=== PATIENT | female | born 1990 | race Caucasian/White ===

== ENCOUNTER 2018-06-26 12:53 | Emergency (ER) | payer OTHER ==
[2018-06-26] MEDS ORDERED: ONDANSETRON ODT 4 MG TAB PO STA (14:44)
[2018-06-26] MEDS ORDERED: KETOROLAC 30 MG/ML 1 ML VIAL IVP STA (14:44)
[2018-06-26] MEDS ORDERED: SODIUM CHLORIDE 0.9% 1,000 ML IV STA ×2 (14:44)
[2018-06-26] MEDS ORDERED: diphenhydrAMINE 50 MG/ML 1 ML VIAL IVP STA (14:44)
[2018-06-26] MEDS ORDERED: ACETAMINOPHEN TAB 500 MG TAB PO STA (15:03)
[2018-06-26] MEDS ORDERED: CYCLOBENZAPRINE 10MG STARTER 3 TAB BTL PO STA (15:03)
--- NOTE | 2018-06-26 15:04 | ED ---
General Adult HPI - General Chief complaint: Recheck/Abnormal Lab/Rx Stated complaint: vandana, sent by [facility] Time Seen by Provider: 06/26/18 14:20 Source: patient, RN notes reviewed, old records reviewed Mode of arrival: ambulatory Limitations: no limitations - History of Present Illness Initial comments: 28-year-old female with sick contacts with flu presents emergency department today with 3 periods a migraine headache nausea vomiting and fever. Patient reports a sore throat and dry cough. Patient was sent by [employer] for fluids. She has a history of sick contacts withthe flu. SHe has used imitrex and fiorecet for her migrine. - Related Data Home Medications Medication Instructions Recorded Confirmed Acetaminophen Tab [Tylenol Tab] 500 mg PO Q6H PRN 06/26/18 06/26/18 Djjbxhrhhi-GPJ-Qzxkwcl-Codeine 1 cap PO Q8H PRN 06/26/18 06/26/18 [Fiorinal w/Cod 61-503-20-30MG] Imitrex (Unknown Dose) 1 tab PO DAILY PRN 06/26/18 Previous Rx's Medication Instructions Recorded Ondansetron Odt [Zofran Odt] 4 mg PO Q8HR PRN #15 tab 06/26/18 Oseltamivir [Tamiflu] 75 mg PO Q12HR #10 cap 06/26/18 Allergies Allergy/AdvReac Type Severity Reaction Status Date / Time No Known Allergies Allergy Verified 06/26/18 14:08 Review of Systems ROS Statement: Those systems with pertinent positive or pertinent negative responses have been documented in the HPI. ROS Other: All systems not noted in ROS Statement are negative. Past Medical History Past Medical History: Asthma Additional Past Medical History / Comment(s): Activity induced asthma. History of Any Multi-Drug Resistant Organisms: None Reported Past Surgical History: No Surgical Hx Reported Additional Past Anesthesia/Blood Transfusion Reaction / Comment(s): Has never had anesthesia, no family hx of anesthesia problems. Past Psychological History: Anxiety Smoking Status: Never smoker Past Alcohol Use History: None Reported Past Drug Use History: None Reported - Past Family History Mother Family Medical History: No Reported History General Exam - General Exam Comments Initial Comments: This is a 28 year old female, no distress. Limitations: no limitations General appearance: alert Head exam: Present: atraumatic, normocephalic, normal inspection Eye exam: Present: normal appearance, PERRL, EOMI. Absent: scleral icterus, conjunctival injection, periorbital swelling ENT exam: Present: normal exam, mucous membranes moist Neck exam: Present: normal inspection. Absent: tenderness, meningismus, lymphadenopathy Respiratory exam: Present: normal lung sounds bilaterally. Absent: respiratory distress, wheezes, rales, rhonchi, stridor Cardiovascular Exam: Present: regular rate, normal rhythm, normal heart sounds. Absent: systolic murmur, diastolic murmur, rubs, gallop, clicks Extremities exam: Present: normal inspection, full ROM, normal capillary refill. Absent: tenderness, pedal edema, joint swelling, calf tenderness Back exam: Present: normal inspection Neurological exam: Present: alert, oriented X3, CN II-XII intact Psychiatric exam: Present: normal affect, normal mood Skin exam: Present: warm, dry, intact, normal color. Absent: rash Course Vital Signs 06/26/18 06/26/18 06/26/18 13:26 14:39 16:50 Temperature 98.3 F 101.5 F H 99.3 F Pulse Rate 101 H 87 Respiratory 20 16 Rate Blood Pressure 111/79 105/69 O2 Sat by Pulse 99 95 Oximetry Medical Decision Making - Medical Decision Making 28 year old female with migraine headache, fever and URI symptoms. She has had vomting. She was given IV fluids labs obtained. Labs are unremarkble. Patient is postive for influenza. Patient given migraine cocktail with relief. Discussed DC with nausea medication and tamilfu. Return parameters discussed. - Lab Data Result diagrams: 06/26/18 15:17 06/26/18 15:17 Lab Results 06/26/18 06/26/18 06/26/18 Range/Units 15:17 15:17 15:17 WBC 6.0 (3.8-10.6) k/uL RBC 4.77 (3.80-5.40) m/uL Hgb 13.9 (11.4-16.0) gm/dL Hct 42.1 (34.0-46.0) % MCV 88.3 (80.0-100.0) fL MCH 29.2 (25.0-35.0) pg MCHC 33.1 (31.0-37.0) g/dL RDW 12.7 (11.5-15.5) % Plt Count 168 (150-450) k/uL Neutrophils % 76 % Lymphocytes % 14 % Monocytes % 7 % Eosinophils % 2 % Basophils % 0 % Neutrophils # 4.6 (1.3-7.7) k/uL Lymphocytes # 0.8 L (1.0-4.8) k/uL Monocytes # 0.4 (0-1.0) k/uL Eosinophils # 0.1 (0-0.7) k/uL Basophils # 0.0 (0-0.2) k/uL Sodium 137 (137-145) mmol/L Potassium 3.8 (3.5-5.1) mmol/L Chloride 104 (98-107) mmol/L Carbon Dioxide 22 (22-30) mmol/L Anion Gap 11 mmol/L BUN 11 (7-17) mg/dL Creatinine 0.88 (0.52-1.04) mg/dL Est GFR (CKD-EPI)AfAm >90 (>60 ml/min/1.73 sqM) Est GFR (CKD-EPI)NonAf 90 (>60 ml/min/1.73 sqM) Glucose 79 (74-99) mg/dL Calcium 8.8 (8.4-10.2) mg/dL Urine Color Urine Appearance (Clear) Urine pH (5.0-8.0) Ur Specific [place] (1.001-1.035) Urine Protein (Negative) Urine Glucose (UA) (Negative) Urine Ketones (Negative) Urine Blood (Negative) Urine Nitrite (Negative) Urine Bilirubin (Negative) Urine Urobilinogen (<2.0) mg/dL Ur Leukocyte Esterase (Negative) Urine RBC (0-5) /hpf Urine WBC (0-5) /hpf Ur Squamous Epith Cells (0-4) /hpf Urine Bacteria (None) /hpf Urine Mucus (None) /hpf Urine HCG, Qual (Not Detectd) Influenza Type A RNA Detected H (Not Detectd) Influenza Type B (PCR) Not Detected (Not Detectd) 06/26/18 06/26/18 Range/Units 15:56 15:56 WBC (3.8-10.6) k/uL RBC (3.80-5.40) m/uL Hgb (11.4-16.0) gm/dL Hct (34.0-46.0) % MCV (80.0-100.0) fL MCH (25.0-35.0) pg MCHC (31.0-37.0) g/dL RDW (11.5-15.5) % Plt Count (150-450) k/uL Neutrophils % % Lymphocytes % % Monocytes % % Eosinophils % % Basophils % % Neutrophils # (1.3-7.7) k/uL Lymphocytes # (1.0-4.8) k/uL Monocytes # (0-1.0) k/uL Eosinophils # (0-0.7) k/uL Basophils # (0-0.2) k/uL Sodium (137-145) mmol/L Potassium (3.5-5.1) mmol/L Chloride (98-107) mmol/L Carbon Dioxide (22-30) mmol/L Anion Gap mmol/L BUN (7-17) mg/dL Creatinine (0.52-1.04) mg/dL Est GFR (CKD-EPI)AfAm (>60 ml/min/1.73 sqM) Est GFR (CKD-EPI)NonAf (>60 ml/min/1.73 sqM) Glucose (74-99) mg/dL Calcium (8.4-10.2) mg/dL Urine Color Yellow Urine Appearance Cloudy H (Clear) Urine pH 5.5 (5.0-8.0) Ur Specific [place] 1.028 (1.001-1.035) Urine Protein 1+ H (Negative) Urine Glucose (UA) Negative (Negative) Urine Ketones 2+ H (Negative) Urine Blood Moderate H (Negative) Urine Nitrite Negative (Negative) Urine Bilirubin Negative (Negative) Urine Urobilinogen <2.0 (<2.0) mg/dL Ur Leukocyte Esterase Small H (Negative) Urine RBC 9 H (0-5) /hpf Urine WBC 3 (0-5) /hpf Ur Squamous Epith Cells 22 H (0-4) /hpf Urine Bacteria Rare H (None) /hpf Urine Mucus Moderate H (None) /hpf Urine HCG, Qual Not Detected (Not Detectd) Influenza Type A RNA (Not Detectd) Influenza Type B (PCR) (Not Detectd) Disposition Clinical Impression: Influenza A, Migraine Disposition: HOME SELF-CARE Condition: Good Instructions (If sedation given, give patient instructions): Migraine Headache (ED), Influenza (ED) Additional Instructions: Follow-up with primary care physician. Patient should return to ED if any alarming signs or symptoms occur. Prescriptions: Oseltamivir [Tamiflu] 75 mg PO Q12HR #10 cap Ondansetron Odt [Zofran Odt] 4 mg PO Q8HR PRN #15 tab PRN Reason: Nausea Is patient prescribed a controlled substance at d/c from ED?: No Referrals: Tor Morfin DO [Primary Care Provider] - 1-2 days Time of Disposition: 16:17
[2018-06-26 15:29] LABS: Basophils % (A) 0 %; Eosinophils # (A) 0.1 k/uL (0-0.7); Eosinophils % (A) 2 %; HCT 42.1 % (34.0-46.0); HGB 13.9 gm/dL (11.4-16.0); Lymphocytes # (A) 0.8 k/uL (1.0-4.8); Lymphocytes % (A) 14 %; MCH 29.2 pg (25.0-35.0); MCHC 33.1 g/dL (31.0-37.0); MCV 88.3 fL (80.0-100.0); Mean Platelet Volume 7.9; Monocytes # (A) 0.4 k/uL (0-1.0); Monocytes % (A) 7 %; Neutrophils # (A) 4.6 k/uL (1.3-7.7); Neutrophils % (A) 76 %; Platelet Count 168 k/uL (150-450); RBC 4.77 m/uL (3.80-5.40); RDW 12.7 % (11.5-15.5)
[2018-06-26 15:36] LABS: Anion Gap 11 mmol/L; Blood Urea Nitrogen 11 mg/dL (7-17); Calcium 8.8 mg/dL (8.4-10.2); Carbon Dioxide 22 mmol/L (22-30); Chloride 104 mmol/L (98-107); Glucose 79 mg/dL (74-99); Potassium 3.8 mmol/L (3.5-5.1); Sodium 137 mmol/L (137-145)
[2018-06-26] MEDS ORDERED: MORPHINE SULFATE 2 MG/ML SYRINGE IVP ONE (16:16)
[2018-06-26 16:18] LABS: Appearance,Urine Cloudy (Clear); Bacteria,Urine Rare /hpf; Bilirubin,Urine Negative (Negative); Blood,Urine Moderate (Negative); Color,Urine Yellow; Glucose,Urine (UA) Negative (Negative); Ketones,Urine 2+ (Negative); Leukocyte Esterase,Urine Small (Negative); Mucus,Urine Moderate /hpf; Nitrite,Urine Negative (Negative); PH, Urine 5.5 (5.0-8.0); Protein,Urine 1+ (Negative); RBC,Urine 9 /hpf (0-5); Specific Gravity,Urine 1.028 (1.001-1.035); Squamous Epithelial Cell,Urine 22 /hpf (0-4); Urobilinogen,Urine <2.0 mg/dL (<2.0); WBC,Urine 3 /hpf (0-5)
[2018-06-26 17:15] VITALS: BP 105/69; PULSE 87; RESP 16; TEMP 99.3
== END 2018-06-26 16:50 | disposition home or self-care (01) ==
LOC: EC 12:53
DX: J10.1 Influenza due to other identified influenza virus with other respiratory manifestations (principal); G43.909 Migraine, unspecified, not intractable, without status migrainosus
CPT/HCPCS: 36415; 80048; 85025; 81001; 81025; 87502; 99285; 96374; 96375 ×2; 96361 ×2; J1200; J1885; J2270

== ENCOUNTER → 2020-04-30 | Outpatient (CLI) | payer OTHER ==
--- NOTE | 2020-04-30 11:52 | XR ---
EXAMINATION TYPE: XR cervical spine 3 views, XR thoracic spine 3 views DATE OF EXAM: 04/30/2020 Comparison: None Clinical History: 30-year-old female posterior neck pain Findings: Cervical spine: A 1 cm faint density projecting at the subcutaneous adipose of the lower neck on the lateral view. No predental space widening or prevertebral soft tissue swelling. Alignment is maintained. Disc intersp aces also preserved. Normal odontoid view. Thoracic spine: 12 rib-bearing thoracic vertebral bodies. All pedicles are visualized. Slightly accentuated lower tho racic kyphosis. There may be very mild early degenerative disc disease with slight disc space narrowi ng mid to lower thoracic spine. Alignment is maintained. Impression: 1. Cervical spine: No prevertebral soft tissue swelling or malalignment. Faint 1 cm density projectin g in the subcutaneous adipose layer of the lower neck on the lateral view. This may represent externa l artifact. Correlate with physical exam findings for any palpable abnormality, in which case, target ed ultrasound can be performed. 2. Thoracic spine: Slightly accentuated lower thoracic kyphosis. Suspect mild early degenerative disc disease mid and lower thoracic spine. No vertebral compression collapse or malalignment.
== END | disposition home or self-care (01) ==
LOC: RADXRMAIN 10:58
PROVIDERS: ATTEND Family Medicine
DX: E65 Localized adiposity (principal); M40.294 Other kyphosis, thoracic region
CPT/HCPCS: 72040; 72070

== ENCOUNTER → 2020-10-03 | Outpatient (CLI) | payer OTHER ==
--- NOTE | 2020-10-04 06:46 | US ---
EXAMINATION TYPE: Transabdominal DATE OF EXAM: 10/03/2020 4:28 PM COMPARISON: NONE CLINICAL HISTORY: Z36 Confirm dates, O34.31. EXAM PERFORMED: Transvaginal (TV) and Transabdominal (TA) EXAM MEASUREMENTS: GESTATIONAL AGE / DATING Physician Established: Not yet established Dates by LMP: (8 weeks/5 days) EDC: 05-10-21 Dates by First Scan: No previous this is first scan Dates by Current Scan for: (6 weeks/5 days) EDC: 05-24-21 MATERNAL ANATOMY Uterus: 9.4 x 4.8 x 6.2cm Right Ovary: 5.9 x 3.3 x 2.6cm 2 cysts measuring 1.) 2.9 x 2.9 x 2.4cm and 2.) 2.8 x 2.8 x 2.3cm Left Ovary: 2.4 x 1.7 x 1.8cm Post CDS / Adnexa: wnl Presence of free fluid: no Small subchorionic bleed measures 0.4 x 0.5 x 0.4cm GESTATION / SURVEY CRL: 0.8 (6 weeks/5 days) Yolk Sac (normal less than 6mm): 0.2cm Heart Rate: 125 bpm Rhythm: Normal IUP: Viable IUP Age Appropriate Anatomy Cord Insertion: Too early to visualize Limbs: Too early to visualize Calvarium: Too early to visualize Date of LMP: 08-03-20 Beta HcG (if available): Not available at this time Single live intrauterine gestation is confirmed as Gestational sac, yolk sac, and pole are pres ent. No free fluid in pelvic cul-de-sac. Both ovaries are seen. Right ovary has 2 adjacent thin-walled cysts approaching 3.0 cm in size. One c ould reflect a corpus luteal cyst. Towards the end of the study tiny 4 x 5 x 4 mm fluid collection inferior to gestational sac is felt t o reflect implantation bleed. IMPRESSION: Confirmation of single live intrauterine gestation, mean crown-rump length 0.8 cm corresp onding to 6 week 5 day old fetus.
== END | disposition home or self-care (01) ==
LOC: RADUSWWP 15:41
PROVIDERS: ATTEND Obstetrics & Gynecology
DX: Z36.89 Encounter for other specified antenatal screening (principal); Z3A.01 Less than 8 weeks gestation of pregnancy
CPT/HCPCS: 76801; 76817

== ENCOUNTER 2020-10-13 13:43 | Emergency (ER) | payer OTHER ==
[2020-10-13 14:11] VITALS: RESP 18; TEMP 97.9
[2020-10-13] MEDS ORDERED: SODIUM CHLORIDE 0.9% 1,000 ML IV STA (15:49)
[2020-10-13] MEDS ORDERED: SODIUM CHLORIDE 0.9% 500 ML 500 ML IV STA (15:57)
[2020-10-13 16:01] LABS: Basophils % (A) 0 %; Eosinophils # (A) 0.2 k/uL (0-0.7); Eosinophils % (A) 2 %; HGB 14.3 gm/dL (11.4-16.0); Lymphocytes # (A) 1.8 k/uL (1.0-4.8); Lymphocytes % (A) 18 %; MCH 30.6 pg (25.0-35.0); MCHC 34.2 g/dL (31.0-37.0); MCV 89.6 fL (80.0-100.0); Mean Platelet Volume 7.7; Monocytes # (A) 0.3 k/uL (0-1.0); Monocytes % (A) 3 %; Neutrophils # (A) 7.7 k/uL (1.3-7.7); Neutrophils % (A) 76 %; Platelet Count 227 k/uL (150-450); RBC 4.68 m/uL (3.80-5.40); RDW 12.5 % (11.5-15.5); WBC 10.1 k/uL (3.8-10.6)
[2020-10-13] MEDS ORDERED: diphenhydrAMINE 50 MG/ML 1 ML VIAL IVP STA (16:08)
[2020-10-13] MEDS ORDERED: METOCLOPRAMIDE 5 MG/ML 2 ML VIAL IVP STA (16:09)
[2020-10-13 16:11] LABS: ALT 29 U/L (4-34); AST 21 U/L (14-36); African American GFR (CKD) >90 (>60 ml/min/1.73 sqM); Alkaline Phosphatase 88 U/L (38-126); Anion Gap 12 mmol/L; Blood Urea Nitrogen 7 mg/dL (7-17); Calcium 10.1 mg/dL (8.4-10.2); Carbon Dioxide 24 mmol/L (22-30); Chloride 103 mmol/L (98-107); Glucose 89 mg/dL (74-99); Lipase 97 U/L (23-300); Non-African American GFR(CKD) >90 (>60 ml/min/1.73 sqM); Sodium 139 mmol/L (137-145); Total Bilirubin 0.6 mg/dL (0.2-1.3)
--- NOTE | 2020-10-13 16:20 | ED ---
Nausea/Vomiting/Diarrhea HPI - General Chief complaint: Nausea/Vomiting/Diarrhea Stated complaint: dehydrated Time Seen by Provider: 10/13/20 15:49 Source: patient Mode of arrival: ambulatory Limitations: no limitations - History of Present Illness Initial comments: 30-year-old female, 8 weeks number presents emergency Department with a chief complaint of nausea vomiting. States she went to her OB Who advised to come to the emergency department for rehydration. Patient reports she has been vomiting for the past 6 days. States she attempted using Zofran with no significant improvement in symptoms. She denies any vaginal discharge, bleeding, foul smell, itching. She denies any obstructive or infectious urinary symptoms. Reports minimal abdominal cramping during vomiting episodes. States she has had minimal oral intake due to feeling constantly nauseous. Denies any back pain chest pain or shortness of breath. - Related Data Home Medications Medication Instructions Recorded Confirmed Acetaminophen Tab [Tylenol Tab] 500 mg PO Q6H PRN 06/26/18 06/26/18 Mdexxpeshj-YJS-Spvccyz-Codeine 1 cap PO Q8H PRN 06/26/18 06/26/18 [Fiorinal w/Cod 49-078-90-30MG] Imitrex (Unknown Dose) 1 tab PO DAILY PRN 06/26/18 Previous Rx's Medication Instructions Recorded Ondansetron Odt [Zofran Odt] 4 mg PO Q8HR PRN #15 tab 06/26/18 Oseltamivir [Tamiflu] 75 mg PO Q12HR #10 cap 06/26/18 Allergies Allergy/AdvReac Type Severity Reaction Status Date / Time No Known Allergies Allergy Verified 10/13/20 14:10 Review of Systems ROS Statement: Those systems with pertinent positive or pertinent negative responses have been documented in the HPI. ROS Other: All systems not noted in ROS Statement are negative. Past Medical History Past Medical History: Asthma Additional Past Medical History / Comment(s): Activity induced asthma. History of Any Multi-Drug Resistant Organisms: None Reported Past Surgical History: No Surgical Hx Reported Additional Past Anesthesia/Blood Transfusion Reaction / Comment(s): Has never olmedo d anesthesia, no family hx of anesthesia problems. Past Psychological History: Anxiety Smoking Status: Never smoker Past Alcohol Use History: None Reported Past Drug Use History: None Reported - Past Family History Mother Family Medical History: No Reported History General Exam Limitations: no limitations General appearance: alert, in no apparent distress Head exam: Present: atraumatic, normocephalic, normal inspection Eye exam: Present: normal appearance, PERRL, EOMI Pupils: Present: normal accommodation ENT exam: Present: normal exam, normal oropharynx, mucous membranes moist Neck exam: Present: normal inspection, full ROM. Absent: tenderness, lymphadenopathy Respiratory exam: Present: normal lung sounds bilaterally. Absent: respiratory distress, wheezes Cardiovascular Exam: Present: regular rate, normal rhythm, normal heart sounds GI/Abdominal exam: Present: soft. Absent: distended, tenderness, guarding, rebound Extremities exam: Present: normal inspection, full ROM, normal capillary refill. Absent: tenderness, pedal edema, joint swelling Back exam: Present: normal inspection, full ROM. Absent: tenderness, CVA tenderness (R), CVA tenderness (L) Neurological exam: Present: alert, oriented X3 Psychiatric exam: Present: normal affect, normal mood Skin exam: Present: warm, dry, intact, normal color Course Vital Signs 10/13/20 14:10 Temperature 97.9 F Pulse Rate 81 Respiratory 18 Rate Blood Pressure 125/75 O2 Sat by Pulse 99 Oximetry Medical Decision Making - Medical Decision Making 30-year-old female, 8 weeks number presents emergency Department with a chief complaint of nausea vomiting. On physical examination, no significant abdominal tenderness. No clinical signs of dehydration. Patient is otherwise well-appearing. Patient was given 1.5 L of IV fluids along with Reglan and Benadryl. On reevaluation, she reports improved his symptoms. CBC CMP unremarkable. +1 ketones. Patient was advised to follow-up with a OB. Strict return parameters were thoroughly discussed the patient is am sending ago. Case discussed with physician - Lab Data Result diagrams: 10/13/20 15:51 10/13/20 15:51 Lab Results 10/13/20 10/13/20 10/13/20 Range/Units 15:51 15:51 16:41 WBC 10.1 (3.8-10.6) k/uL RBC 4.68 (3.80-5.40) m/uL Hgb 14.3 (11.4-16.0) gm/dL Hct 42.0 (34.0-46.0) % MCV 89.6 (80.0-100.0) fL MCH 30.6 (25.0-35.0) pg MCHC 34.2 (31.0-37.0) g/dL RDW 12.5 (11.5-15.5) % Plt Count 227 (150-450) k/uL MPV 7.7 Neutrophils % 76 % Lymphocytes % 18 % Monocytes % 3 % Eosinophils % 2 % Basophils % 0 % Neutrophils # 7.7 (1.3-7.7) k/uL Lymphocytes # 1.8 (1.0-4.8) k/uL Monocytes # 0.3 (0-1.0) k/uL Eosinophils # 0.2 (0-0.7) k/uL Basophils # 0.0 (0-0.2) k/uL Sodium 139 (137-145) mmol/L Potassium 4.0 (3.5-5.1) mmol/L Chloride 103 (98-107) mmol/L Carbon Dioxide 24 (22-30) mmol/L Anion Gap 12 mmol/L BUN 7 (7-17) mg/dL Creatinine 0.60 (0.52-1.04) mg/dL Est GFR (CKD-EPI)AfAm >90 (>60 ml/min/1.73 sqM) Est GFR (CKD-EPI)NonAf >90 (>60 ml/min/1.73 sqM) Glucose 89 (74-99) mg/dL Calcium 10.1 (8.4-10.2) mg/dL Total Bilirubin 0.6 (0.2-1.3) mg/dL AST 21 (14-36) U/L ALT 29 (4-34) U/L Alkaline Phosphatase 88 (38-126) U/L Total Protein 8.0 (6.3-8.2) g/dL Albumin 5.0 (3.5-5.0) g/dL Lipase 97 (23-300) U/L Urine Color Yellow Urine Appearance Clear (Clear) Urine pH 5.5 (5.0-8.0) Ur Specific [place] 1.026 (1.001-1.035) Urine Protein Trace H (Negative) Urine Glucose (UA) Negative (Negative) Urine Ketones 1+ H (Negative) Urine Blood Trace H (Negative) Urine Nitrite Negative (Negative) Urine Bilirubin Negative (Negative) Urine Urobilinogen <2.0 (<2.0) mg/dL Ur Leukocyte Esterase Trace H (Negative) Urine RBC 3 (0-5) /hpf Urine WBC 2 (0-5) /hpf Ur Squamous Epith Cells 4 (0-4) /hpf Hyaline Casts 1 (0-2) /lpf Urine Mucus Few H (None) /hpf Urine HCG, Qual (Not Detectd) 10/13/20 Range/Units 16:41 WBC (3.8-10.6) k/uL RBC (3.80-5.40) m/uL Hgb (11.4-16.0) gm/dL Hct (34.0-46.0) % MCV (80.0-100.0) fL MCH (25.0-35.0) pg MCHC (31.0-37.0) g/dL RDW (11.5-15.5) % Plt Count (150-450) k/uL MPV Neutrophils % % Lymphocytes % % Monocytes % % Eosinophils % % Basophils % % Neutrophils # (1.3-7.7) k/uL Lymphocytes # (1.0-4.8) k/uL Monocytes # (0-1.0) k/uL Eosinophils # (0-0.7) k/uL Basophils # (0-0.2) k/uL Sodium (137-145) mmol/L Potassium (3.5-5.1) mmol/L Chloride (98-107) mmol/L Carbon Dioxide (22-30) mmol/L Anion Gap mmol/L BUN (7-17) mg/dL Creatinine (0.52-1.04) mg/dL Est GFR (CKD-EPI)AfAm (>60 ml/min/1.73 sqM) Est GFR (CKD-EPI)NonAf (>60 ml/min/1.73 sqM) Glucose (74-99) mg/dL Calcium (8.4-10.2) mg/dL Total Bilirubin (0.2-1.3) mg/dL AST (14-36) U/L ALT (4-34) U/L Alkaline Phosphatase (38-126) U/L Total Protein (6.3-8.2) g/dL Albumin (3.5-5.0) g/dL Lipase (23-300) U/L Urine Color Urine Appearance (Clear) Urine pH (5.0-8.0) Ur Specific [place] (1.001-1.035) Urine Protein (Negative) Urine Glucose (UA) (Negative) Urine Ketones (Negative) Urine Blood (Negative) Urine Nitrite (Negative) Urine Bilirubin (Negative) Urine Urobilinogen (<2.0) mg/dL Ur Leukocyte Esterase (Negative) Urine RBC (0-5) /hpf Urine WBC (0-5) /hpf Ur Squamous Epith Cells (0-4) /hpf Hyaline Casts (0-2) /lpf Urine Mucus (None) /hpf Urine HCG, Qual Detected (Not Detectd) Disposition Clinical Impression: Dehydration, Nausea & vomiting Disposition: HOME SELF-CARE Condition: Stable Instructions (If sedation given, give patient instructions): Acute Nausea and Vomiting (ED) Additional Instructions: Please return to the Emergency Department if symptoms worsen or any other concerns. Is patient prescribed a controlled substance at d/c from ED?: No Referrals: Tor Morfin DO [Primary Care Provider] - 1-2 days Time of Disposition: 17:19
[2020-10-13 16:50] LABS: Appearance,Urine Clear (Clear); Bilirubin,Urine Negative (Negative); Blood,Urine Trace (Negative); Color,Urine Yellow; Glucose,Urine (UA) Negative (Negative); Hyaline Casts,Urine 1 /lpf (0-2); Ketones,Urine 1+ (Negative); Leukocyte Esterase,Urine Trace (Negative); Mucus,Urine Few /hpf; Nitrite,Urine Negative (Negative); PH, Urine 5.5 (5.0-8.0); Protein,Urine Trace (Negative); RBC,Urine 3 /hpf (0-5); Specific Gravity,Urine 1.026 (1.001-1.035); Squamous Epithelial Cell,Urine 4 /hpf (0-4); Urobilinogen,Urine <2.0 mg/dL (<2.0); WBC,Urine 2 /hpf (0-5)
[2020-10-13 17:52] VITALS: BP 119/56; PULSE 79
== END 2020-10-13 17:52 | disposition home or self-care (01) ==
LOC: EC 13:43
DX: O99.281 Endocrine, nutritional and metabolic diseases complicating pregnancy, first trimester (principal); E86.0 Dehydration; O21.9 Vomiting of pregnancy, unspecified; O26.891 Other specified pregnancy related conditions, first trimester; R10.9 Unspecified abdominal pain; O99.511 Diseases of the respiratory system complicating pregnancy, first trimester; J45.909 Unspecified asthma, uncomplicated; O99.341 Other mental disorders complicating pregnancy, first trimester; F41.9 Anxiety disorder, unspecified; Z3A.08 8 weeks gestation of pregnancy
CPT/HCPCS: 36415; 80053; 83690; 85025; 81001; 81025; 99284; 96374; 96375; 96361 ×2; J1200; J2765

== ENCOUNTER 2021-05-12 14:46 | Outpatient (CLI) | payer OTHER ==
[2021-05-12 15:57] VITALS: BP 112/75; PULSE 104; RESP 16; TEMP 97.5
--- NOTE | 2021-05-14 07:36 | P.MSEPDOC ---
Presenting Problems - Arrival Data Date of Arrival on Unit: 05/12/21 Time of Arrival on Unit: 14:46 Mode of Transport: Ambulatory - Complaint OB-Reason for Admission/Chief Complaint: Rule Out SROM Comment: 1400 pt felt fluid Medical History - Information : 2 Para: 1 Term: 1 : 0 Abortions: Spontaneous or Elective: 0 Number of Living Children: 1 - Gestational Age Gestational Age by YONATAN (wks/days): 38 Weeks and 2 Days - History Comment: two vessel cord, gbs positive Review of Systems - Review of Systems Constitutional: No problems Breast: No problems ENT: No problems Cardiovascular: No problems Respiratory: No problems Gastrointestinal: No problems Genitourinary: No problems Musculoskeletal: No problems Neurological: No problems Skin: No problems Vital Signs - Temperature Temperature: 97.5 F Temperature Source: Axillary - Pulse Right Brachial Pulse Rate: 104 Pulse Assessment Method: Automatic Cuff - Respirations Respiratory Rate: 16 Oxygen Delivery Method: Room Air - Blood Pressure Right Arm Blood Pressure: 112/75 Blood Pressure Mean: 87 Blood Pressure Source: Automatic Cuff Medical Screen Scoring - Cervical Exam Dilation (cm): 1 Effacement (%): 50 Station: -2 Membranes: Intact - Uterine Contractions Resting: Soft to palpation - Assessment - Baby A Baseline FHR: 140 Heart Rate - NICHD Category: Category I (Normal) Physician Notification - Physician Notified Physician Notified Date: 05/12/21 Physician Notified Time: 15:31 Physician: Mila Ag Order Received: Yes - Notification Comment Comment: reported visit, reactive nst and neg amnisure Maternal Triage Index - Maternal Triage Index Presenting for scheduled procedure w/no complaint: No - Stat/Priority 1 Stat Priority 1: No - Urgent/Priority 2 Urgent Priority 2: No - Prompt/Priority 3 Prompt Priority 3: No - Non-Urgent/Priority 4 Non-Urgent Priority 4: Yes Criteria Met for Priority 4: pt reports possible rom Disposition - Disposition OB Disposition: Discharge to home Discharge Date: 05/12/21 Discharge Time: 15:37 I agree with the RN Medical Screening Exam: Yes Case reviewed; plan agreed upon as documented in EMR&OBIX.: Yes Diagnosis: FALSE LABOR AT OR AFTER 37 COMPLETED WEEKS OF GESTATION
== END 2021-05-12 15:37 | disposition home or self-care (01) ==
LOC: FBPOP 14:46
PROVIDERS: ATTEND Obstetrics & Gynecology
DX: O47.1 False labor at or after 37 completed weeks of gestation (principal); Z3A.38 38 weeks gestation of pregnancy
CPT/HCPCS: 59025; 84112; G0463; 99213

== ENCOUNTER → 2022-10-29 | Outpatient (CLI) | payer OTHER ==
--- NOTE | 2022-10-29 15:11 | US ---
EXAMINATION TYPE: US axilla RT DATE OF EXAM: 10/29/2022 COMPARISON: NONE CLINICAL INDICATION: Female, 32 years old with history of N63.31 UNSPECIFIED LUMP IN AXILLARY TAIL OF R [place]; Patient states feeling an uncomfortable lump in axilla x 1 week. Patient states she no long er feels the palpable area. No recent illness or vaccination. TECHNIQUE: Multiple sonographic images of patients area of concern scanned FINDINGS: Patients area of concern in axilla scanned. No prominent masses, lesions or lymph nodes v isualized at time of scan. IMPRESSION: 1. Negative ultrasound. Clinical management recommended.
== END | disposition home or self-care (01) ==
LOC: RADUSWWP 14:17
PROVIDERS: ATTEND Family Medicine
DX: N63.31 Unspecified lump in axillary tail of the right breast (principal)

== ENCOUNTER 2023-06-01 14:35 | Emergency (ER) | payer OTHER ==
[2023-06-01 15:20] VITALS: RESP 18; TEMP 98.7
--- NOTE | 2023-06-01 15:58 | ED ---
Headache HPI - General Chief Complaint: Headache Stated Complaint: Migraine Time Seen by Provider: 06/01/23 15:16 Source: patient, RN notes reviewed Mode of arrival: ambulatory Limitations: no limitations - History of Present Illness Initial Comments: This is a 33-year-old female who presents to the emergency department for a headache. States that this has been present for the last 3 days. She just found out that she has a gas leak at work. Unsure what kind of leak this was specifically, however she states that [employer] is currently trying to fix it. She has associated dizziness and nausea. She does have a history of migraines and states that this feels similar, however she cannot get it to go away with her typical medications. She would not describe this as the worst headache of her life. She treats her migraines with Nurtec, which is usually effective. She wants to make sure that this is not related to the gas leak. MD Complaint: headache - Related Data Home Medications Medication Instructions Recorded Confirmed Vit No.180/Iron/Folic 1 tab PO DAILY 05/12/21 05/13/21 [ Plus Tablet] Previous Rx's Medication Instructions Recorded Phenylephrine HCl/[place] Butter 1 supp RECTAL Q6HR PRN #24 05/14/21 [Preparation H Suppository] suppositor Allergies Allergy/AdvReac Type Severity Reaction Status Date / Time No Known Allergies Allergy Verified 06/01/23 15:02 Review of Systems ROS Statement: Those systems with pertinent positive or pertinent negative responses have been documented in the HPI. ROS Other: All systems not noted in ROS Statement are negative. Past Medical History Past Medical History: Asthma Additional Past Medical History / Comment(s): Activity induced asthma. History of Any Multi-Drug Resistant Organisms: None Reported Past Surgical History: No Surgical Hx Reported Past Anesthesia/Blood Transfusion Reactions: No Reported Reaction Additional Past Anesthesia/Blood Transfusion Reaction / Comment(s): Has never had anesthesia, no family hx of anesthesia problems. Past Psychological History: No Psychological Hx Reported Smoking Status: Never smoker Past Alcohol Use History: None Reported Past Drug Use History: None Reported - Past Family History Mother Family Medical History: Diabetes Mellitus General Exam Limitations: no limitations General appearance: alert, in no apparent distress Head exam: Present: atraumatic, normocephalic, normal inspection Eye exam: Present: normal appearance, PERRL, EOMI. Absent: scleral icterus, conjunctival injection, periorbital swelling Respiratory exam: Present: normal lung sounds bilaterally. Absent: respiratory distress, wheezes, rales, rhonchi, stridor Cardiovascular Exam: Present: regular rate, normal rhythm, normal heart sounds. Absent: systolic murmur, diastolic murmur, rubs, gallop, clicks Neurological exam: Present: alert, oriented X3, CN II-XII intact Psychiatric exam: Present: normal affect, normal mood Skin exam: Present: warm, dry, intact, normal color. Absent: rash Course Vital Signs 06/01/23 06/01/23 15:00 17:37 Temperature 98.7 F Pulse Rate 74 71 Respiratory 18 18 Rate Blood Pressure 139/87 120/82 O2 Sat by Pulse 100 100 Oximetry Medical Decision Making - Medical Decision Making This is a 33 year old female who presents to the emergency department for a headache. Was pt. sent in by a medical professional or institution? @ -No Did you speak to anyone other than the patient for history? @ -No Did you review nursing and triage notes? @ -Yes, and I agree, it is accurate with regards to the patient's symptoms. Were old charts reviewed? @ -No Differential Diagnosis? @ -Differential Headache: Migraine, tension, cluster, carbon monoxide, central venous thrombosis, pension karma temporal arteritis, acute closure glaucoma, intercranial hemorrhage, mastoiditis, sinusitis, head injury, this is not meant to be an all-inclusive list. EKG interpreted by me (3pts min.)? @ -Not obtained X-rays interpreted by me (1pt min.)? @ -Not obtained CT interpreted by me (1pt min.)? @ -Not obtained U/S interpreted by me (1pt. min.)? @ -Not obtained What testing was considered but not performed? (CT, X-rays, U/S, labs)? Why? @ -None What meds were considered but not given? Why? @ -None Did you discuss the management of the patient with other professionals? @ -No Did you reconcile home meds? @ -No Was smoking cessation discussed for >3mins.? @ -No Was critical care preformed (if so, how long)? @ -No Were there social determinants of health that impacted care today? How? (Homelessness, low income, unemployed, alcoholism, drug addiction, transport ation, low edu. Level, literacy, decrease access to med. care, [facility], rehab)? @ -No Was there de-escalation of care discussed even if they declined? (Discuss DNR or withdrawal of care, Hospice)? @ -No What co-morbidities impacted this encounter? (DM, HTN, Smoking, COPD, CAD, Cancer, CVA, Hep., AIDS, mental health diagnosis, sleep apnea, morbid obesity)? @ -Migraines Was patient admitted / discharged? @ -Discharged. Lab work obtained and found to be unremarkable. Carbon monoxide levels within normal limits. Patient given a migraine cocktail consisting of IV fluids, Toradol, Decadron, Benadryl, and Reglan, and essentially had resolution of symptoms. Discussed that she can have residual side effects from exposure, which may be contributing to her symptoms. Advised continuing with her typical migraine medication or [id number] ibuprofen and Tylenol as needed for any additional headaches. Patient discharged home in stable condition. Undiagnosed new problem with uncertain prognosis? @ -None Drug Therapy requiring intensive monitoring for toxicity (Heparin, Nitro, Insulin, Cardizem)? @ -None Were any procedures done? @ -None Diagnosis/symptom? @ -Headache Acute, or Chronic, or Acute on Chronic? @ -Acute Uncomplicated (without systemic symptoms) or Complicated (systemic symptoms)? @ -Uncomplicated Side effects of treatment? @ -None Exacerbation, Progression, or Severe Exacerbation] @ -Not applicable Poses a threat to life or bodily function? @ -No Return precautions reviewed in depth, the patient is instructed to return to the emergency department with any new, worsening, or concerning symptoms. Patient verbalized understanding. This case was discussed in detail with the attending ED physician, Dr. De La O. Presentation, findings, and treatment plan discussed in detail as well. - Lab Data Result diagrams: 06/01/23 15:59 06/01/23 15:59 Lab Results 06/01/23 06/01/23 06/01/23 Range/Units 15:59 15:59 15:59 WBC 7.6 (3.8-10.6) k/uL RBC 4.93 (3.80-5.40) m/uL Hgb 14.7 (11.4-16.0) gm/dL Hct 45.6 (34.0-46.0) % MCV 92.5 (80.0-100.0) fL MCH 29.9 (25.0-35.0) pg MCHC 32.3 (31.0-37.0) g/dL RDW 12.6 (11.5-15.5) % Plt Count 273 (150-450) k/uL MPV 7.9 Neutrophils % 69 % Lymphocytes % 23 % Monocytes % 3 % Eosinophils % 3 % Basophils % 1 % Neutrophils # 5.2 (1.3-7.7) k/uL Lymphocytes # 1.7 (1.0-4.8) k/uL Monocytes # 0.2 (0-1.0) k/uL Eosinophils # 0.2 (0-0.7) k/uL Basophils # 0.1 (0-0.2) k/uL Carbon Monoxide, Quant 1.5 (<10.0) % Sodium 141 (137-145) mmol/L Potassium 4.6 (3.5-5.1) mmol/L Chloride 107 (98-107) mmol/L Carbon Dioxide 25 (22-30) mmol/L Anion Gap 9 mmol/L BUN 15 (7-17) mg/dL Creatinine 0.78 (0.52-1.04) mg/dL Est GFR (CKD-EPI)AfAm >90 (>60 ml/min/1.73 sqM) Est GFR (CKD-EPI)NonAf >90 (>60 ml/min/1.73 sqM) Glucose 90 (74-99) mg/dL Calcium 9.6 (8.4-10.2) mg/dL Total Bilirubin 0.4 (0.2-1.3) mg/dL AST 19 (14-36) U/L ALT 21 (4-34) U/L Alkaline Phosphatase 80 (38-126) U/L Total Protein 7.7 (6.3-8.2) g/dL Albumin 4.6 (3.5-5.0) g/dL Disposition Clinical Impression: Headache Disposition: HOME SELF-CARE Instructions (If sedation given, give patient instructions): Acute Headache (ED) Additional Instructions: Return to the emergency department with any new, worsening, or concerning s ymptoms. Follow up with your primary care provider in 1-2 days. Is patient prescribed a controlled substance at d/c from ED?: No Referrals: Tor Morfin DO [Primary Care Provider] - 1-2 days Time of Disposition: 17:19
[2023-06-01] MEDS: SODIUM CHLORIDE 0.9% 1,000 ML IV STA (16:06)
[2023-06-01] MEDS: DEXAMETHASONE SOD PHOSPHATE 10 MG/ML 1 ML VIAL IVP STA (16:06)
[2023-06-01] MEDS: KETOROLAC 15 MG/ML 1 ML VIAL IVP STA (16:07)
[2023-06-01] MEDS: METOCLOPRAMIDE 5 MG/ML 2 ML VIAL IVP STA (16:07)
[2023-06-01] MEDS: diphenhydrAMINE 50 MG/ML 1 ML VIAL IVP STA (16:08)
[2023-06-01 16:45] LABS: Basophils # (A) 0.1 k/uL (0-0.2); Basophils % (A) 1 %; Eosinophils # (A) 0.2 k/uL (0-0.7); Eosinophils % (A) 3 %; HCT 45.6 % (34.0-46.0); HGB 14.7 gm/dL (11.4-16.0); Lymphocytes # (A) 1.7 k/uL (1.0-4.8); Lymphocytes % (A) 23 %; MCH 29.9 pg (25.0-35.0); MCHC 32.3 g/dL (31.0-37.0); MCV 92.5 fL (80.0-100.0); Mean Platelet Volume 7.9; Monocytes # (A) 0.2 k/uL (0-1.0); Monocytes % (A) 3 %; Neutrophils # (A) 5.2 k/uL (1.3-7.7); Neutrophils % (A) 69 %; Platelet Count 273 k/uL (150-450); RBC 4.93 m/uL (3.80-5.40); RDW 12.6 % (11.5-15.5); WBC 7.6 k/uL (3.8-10.6)
[2023-06-01 16:51] LABS: ALT 21 U/L (4-34); AST 19 U/L (14-36); African American GFR (CKD) >90 (>60 ml/min/1.73 sqM); Albumin 4.6 g/dL (3.5-5.0); Alkaline Phosphatase 80 U/L (38-126); Anion Gap 9 mmol/L; Blood Urea Nitrogen 15 mg/dL (7-17); Calcium 9.6 mg/dL (8.4-10.2); Carbon Dioxide 25 mmol/L (22-30); Chloride 107 mmol/L (98-107); Glucose 90 mg/dL (74-99); Non-African American GFR(CKD) >90 (>60 ml/min/1.73 sqM); Potassium 4.6 mmol/L (3.5-5.1); Sodium 141 mmol/L (137-145); Total Bilirubin 0.4 mg/dL (0.2-1.3); Total Protein 7.7 g/dL (6.3-8.2)
[2023-06-01 17:45] VITALS: BP 120/82; PULSE 71
== END 2023-06-01 17:38 | disposition home or self-care (01) ==
LOC: EC 14:35
DX: G43.909 Migraine, unspecified, not intractable, without status migrainosus (principal); J45.909 Unspecified asthma, uncomplicated
CPT/HCPCS: 99283; 96374; 96375 ×3; 96361; 36415; 80053; 82375; 85025; J1200; J1100; J2765; J1885

== ENCOUNTER → 2023-07-29 | Outpatient (CLI) | payer OTHER ==
--- NOTE | 2023-08-02 10:17 | MM ---
Reason for Exam: Screening (asymptomatic). Baseline mammogram. Patient History: Menarche at age 12. First Full-Term at age 22. Maternal grandmother had breast cancer. Last menstrual period: 06/28/2023 Prior Study Comparison: Patient's first Mammogram. No prior studies available for comparison. Tissue Density: The breasts are heterogeneously dense, which may obscure small masses. Findings: Analyzed By CAD. Right breast: There is no suspicious group of microcalcifications or new suspicious mass. Left breast: There is no suspicious group of microcalcifications or new suspicious mass. Overall Assessment: Negative, BI-RAD 1 Management: Screening Mammogram of both breasts in [address] [facility] will attempt to contact patient to return for supplemental views and ultrasound if indicated. Patient should continue monthly self-breast exams. A clinical breast exam by your physician is recommended on an annual basis. This exam should not preclude additional follow-up of suspicious palpable abnormalities. Note on Pat scores and lifetime risk: 1. A Pat score greater than 3% is considered moderate risk. If this is the case, consider specialist referral to assess eligibility for a risk reducing agent. 2. If overall lifetime risk for the development of breast cancer is 20% or higher, the patient may qualify for future screening with alternating mammogram and breast MRI. Electronically signed and approved by: Bob Gonzalez DO
== END | disposition home or self-care (01) ==
LOC: RADMAMWWP 09:02
PROVIDERS: ATTEND Family Medicine
DX: Z12.31 Encounter for screening mammogram for malignant neoplasm of breast (principal); Z80.3 Family history of malignant neoplasm of breast
CPT/HCPCS: 77067

== ENCOUNTER → 2024-10-24 | Outpatient (CLI) | payer OTHER ==
--- NOTE | 2024-10-24 12:39 | XR ---
EXAMINATION TYPE: XR lumbosacral spine min 4V DATE OF EXAM: 10/24/2024 12:10 PM COMPARISON: None CLINICAL INDICATION: Female, 34 years old with history of M54.50 Low back pain; PHH, pain TECHNIQUE: XR lumbosacral spine min 4V - Frontal, lateral , bilateral oblique and coned in L5-S1 late ral views of the spine. FINDINGS: No evidence of any acute osseous pathology. No evidence of loss of vertebral body height i s seen. There is normal alignment of the lumbar vertebral bodies. No significant degeneration changes throughout the spine. IMPRESSION: 1. No acute fracture. 2. No significant disc degeneration. [facility], , 10/24/2024 12:36 PM
== END | disposition home or self-care (01) ==
LOC: RADXRMAIN 11:44
PROVIDERS: ATTEND Chiropractor
DX: M54.50 Low back pain, unspecified (principal)
CPT/HCPCS: 72110